=== PATIENT | male | born 1975 | race Caucasian/White ===

== ENCOUNTER 2018-01-02 10:59 | Inpatient (IN) | payer OTHER ==
[2018-01-02] VITALS (7 sets, daily range): BP systolic 136–182; BP diastolic 70–85; PULSE 99–105; RESP 16–20; TEMP 97.8–98.8; O2SAT 98–100
[2018-01-02 12:48] LABS: AUTOMATED NEUTROPHIL # 13.6 TH/MM3 (1.8-7.7); BASOPHIL # 0.1 TH/MM3 (0-0.2); BASOPHIL % 0.4 % (0.0-2.0); HEMATOCRIT 56.7 % (39.0-51.0); LYMPH % 8.2 % (9.0-44.0); LYMPHOCYTE # 1.3 TH/MM3 (1.0-4.8); MEAN CELL VOLUME 93.2 FL (80.0-100.0); MEAN CORPUSCULAR HEMOGLOBIN 29.6 PG (27.0-34.0); MEAN CORPUSCULAR HGB CONC 31.8 % (32.0-36.0); MEAN PLATELET VOLUME 9.5 FL (7.0-11.0); MONO % 3.3 % (0.0-8.0); MONOCYTE # 0.5 TH/MM3 (0-0.9); NEUT % 88.1 % (16.0-70.0); PLATELET COUNT 308 TH/MM3 (150-450); RED BLOOD COUNT 6.08 MIL/MM3 (4.50-5.90); RED CELL DISTRIBUTION WIDTH 14.5 % (11.6-17.2); WHITE BLOOD COUNT 15.4 TH/MM3 (4.0-11.0)
[2018-01-02 12:49] LABS: BILIRUBIN, URINE NEG (NEG); BLOOD, URINE SMALL (NEG); GLUCOSE,URINE 1000 mg/dL (NEG); KETONE, URINE 150 mg/dL (NEG); MUCUS URINE FEW /lpf (OCC); NITRITE,URINE NEG (NEG); PH, URINE 5.5 (5.0-8.5); URINE COLOR LIGHT-YELLOW (YELLW/STRAW); URINE LEUKOCYTE ESTERASE NEG (NEG)
[2018-01-02 12:51] LABS: INTERNATIONAL NORMALIZED RATIO 1.1 RATIO; PROTHROMBIN TIME - PATIENT 10.7 SEC (9.8-11.6)
[2018-01-02] MEDS ORDERED: ROSU1TAB8 PO (12:58)
[2018-01-02] MEDS ORDERED: METF500T PO (12:58)
[2018-01-02] MEDS: SODIUM CHLOR 0.9% 1000 ML INJ 1,000 ML IV SCH ×5 (13:01→21:35)
[2018-01-02 13:20] LABS: ALBUMIN 4.9 GM/DL (3.4-5.0); ALKALINE PHOSPHATASE 111 U/L (45-117); ALT (GPT) 86 U/L (12-78); AST (GOT) 29 U/L (15-37); BICARBONATE 6.8 MEQ/L (21.0-32.0); BLOOD UREA NITROGEN 30 MG/DL (7-18); CALCIUM 9.5 MG/DL (8.5-10.1); CHLORIDE 100 MEQ/L (98-107); CREATININE 1.86 MG/DL (0.60-1.30); GLOMERULAR FILTRATION RATE 40 ML/MIN (>89); SODIUM (NA) 133 MEQ/L (136-145); TOTAL BILIRUBIN ADULT 0.6 MG/DL (0.2-1.0); TOTAL PROTEIN 9.5 GM/DL (6.4-8.2)
[2018-01-02 13:33] LABS: GLUCOSE,RANDOM 647 MG/DL (74-106)
[2018-01-02] MEDS: DEXT 5%-NACL 0.9% 1000 ML INJ 1,000 ML IV SCH ×3 (13:35→21:08)
--- NOTE | 2018-01-02 13:40 | PD ---
Physical Exam Narrative I, Dr. Hillman, have reviewed the advance practice practitioner's documentation and am in agreement, met with the patient face to face, made the diagnosis, and the medical decision making was done by me. *My assessment and Findings: DKA vs. gastritis vs. viral syndrome 42yo M with HLD and recently diagnosed DM on metformin presents to the ED with c /o nausea and vomiting for 1.5 days. Pt has generalized weakness and has not been feeling well. Denies any fever, chest pain, sob, abdominal pain, focal weakness or numbness or diarrhea. Labs reviewed, leukocytosis at 15.4. H/H elevated at 18/56.7 likely dehydration. Glucose elevated at 647. Bicarb low at 6.8. BUN/creatinine elevated at 30/1.86. K is 5.0. Pt received 1 liter of NS IVF, ordered a second liter of NS IVF. Insulin drip ordered as well as replacement for potassium as needed. UA negative. Discussed with hospitalist Dr. Saleh and accepted to his service. Data Data Last Documented VS Vital Signs Date Time Temp Pulse Resp B/P (MAP) Pulse Ox O2 Delivery O2 Flow Rate FiO2 01/02/18 14:00 104 16 100 Room Air 01/02/18 11:42 97.8 Orders Orders Complete Blood Count With Diff (01/02/18 11:44) Comprehensive Metabolic Panel (01/02/18 11:44) Lipase (01/02/18 11:44) Prothrombin Time / Inr (Pt) (01/02/18 11:44) Act Partial Throm Time (Ptt) (01/02/18 11:44) Urinalysis - C+S If Indicated (01/02/18 11:44) Electrocardiogram (01/02/18 11:44) Beta Hydroxybutyrate (Acetone) (01/02/18 11:44) Sodium Chlor 0.9% 1000 Ml Inj (Ns 1000 M (01/02/18 12:50) Blood Gas Venous (Vbg) (01/02/18 12:50) Sodium Chlor 0.9% 1000 Ml Inj (Ns 1000 M (01/02/18 13:45) Sodium Chlor 0.9% 1000 Ml Inj (Ns 1000 M (01/02/18 13:35) Dext 5%-Nacl 0.9% 1000 Ml Inj (D5w-Ns 10 (01/02/18 13:35) Insulin Human Regular Inj (Novolin R Inj (01/02/18 13:45) Insulin Regular (Iv Infusion) (Novolin R (01/02/18 15:00) Potassium Chlor 20 Meq Premix (Kcl 20 Me (01/02/18 13:45) Potassium Chlor 20 Meq Premix (Kcl 20 Me (01/02/18 13:45) Potassium Chlor 20 Meq Premix (Kcl 20 Me (01/02/18 13:45) Potassium Chlor 20 Meq Premix (Kcl 20 Me (01/02/18 13:45) Admit To Inpatient (01/02/18 ) Staff Developer / Telemetry AURELIA.Q8H (01/02/18 14:11) ^ Insert Iv (01/02/18 14:11) ^ Teach Patient (01/02/18 14:11) Bedside Glucose AURELIA.Q1H (01/02/18 14:11) Potassium Chlor 40 Meq Premix (Kcl 40 Me (01/02/18 14:15) Potassium Chlor 40 Meq Premix (Kcl 40 Me (01/02/18 14:15) Potassium Chlor 20 Meq Premix (Kcl 20 Me (01/02/18 14:15) Potassium Chlor 20 Meq Premix (Kcl 20 Me (01/02/18 14:15) Potassium Chlor 20 Meq Premix (Kcl 20 Me (01/02/18 14:15) Potassium Chlor 20 Meq Premix (Kcl 20 Me (01/02/18 14:15) Potassium Chlor 20 Meq Premix (Kcl 20 Me (01/02/18 14:15) Potassium Chlor 20 Meq Premix (Kcl 20 Me (01/02/18 14:15) Sodium Bicarbonate 8.4% Inj (Sodium Bica (01/02/18 14:15) Sodium Bicarbonate 8.4% Inj (Sodium Bica (01/02/18 14:15) Sodium Phosphate Inj (Sodium Phosphate I (01/02/18 14:15) Basic Metabolic Panel (Bmp) (01/02/18 19:11) Basic Metabolic Panel (Bmp) (01/03/18 01:11) Basic Metabolic Panel (Bmp) (01/03/18 07:11) Magnesium (Mg) (01/02/18 19:11) Magnesium (Mg) (01/03/18 01:11) Magnesium (Mg) (01/03/18 07:11) Phosphorus (Po4) (01/02/18 19:11) Phosphorus (Po4) (01/03/18 01:11) Phosphorus (Po4) (01/03/18 07:11) Beta Hydroxybutyrate (Acetone) (01/03/18 01:11) Beta Hydroxybutyrate (Acetone) (01/03/18 13:11) ^ Initiate Protocol (01/02/18 14:11) Instruction (01/02/18 14:11) [facility] (01/02/18 14:15) Chlorhexidine 2% Cloth (Chlorhexidine 2% (01/03/18 04:00) Chlorhexidine 2% Cloth (Chlorhexidine 2% (01/02/18 14:15) Mrsa Pcr Surveillance (01/02/18 14:11) Inpatient Certification (01/02/18 ) Activity Oob With Assistance (01/02/18 14:11) Acetaminophen (Tylenol) (01/02/18 14:15) Ondansetron Inj (Zofran Inj) (01/02/18 14:15) Case Management Consult (01/02/18 14:11) Scd Bilateral/Knee High AURELIA.BID (01/02/18 14:11) Acetaminophen (Tylenol) (01/02/18 14:15) Naloxone Inj (Narcan Inj) (01/02/18 14:15) Magnesium Hydroxide Liq (Milk Of Magnesi (01/02/18 14:15) Albuterol-Ipratropium Neb (Duoneb Neb) (01/02/18 14:15) Hemoglobin (Hgb) A1c (01/03/18 06:00) Admit Order (Ed Use Only) (01/02/18 14:17) Labs Laboratory Tests Test 01/02/18 12:30 01/02/18 12:31 01/02/18 13:15 White Blood Count 15.4 TH/MM3 Red Blood Count 6.08 MIL/MM3 Hemoglobin 18.0 GM/DL Hematocrit 56.7 % Mean Corpuscular Volume 93.2 FL Mean Corpuscular Hemoglobin 29.6 PG Mean Corpuscular Hemoglobin Concent 31.8 % Red Cell Distribution Width 14.5 % Platelet Count 308 TH/MM3 Mean Platelet Volume 9.5 FL Neutrophils (%) (Auto) 88.1 % Lymphocytes (%) (Auto) 8.2 % Monocytes (%) (Auto) 3.3 % Eosinophils (%) (Auto) 0.0 % Basophils (%) (Auto) 0.4 % Neutrophils # (Auto) 13.6 TH/MM3 Lymphocytes # (Auto) 1.3 TH/MM3 Monocytes # (Auto) 0.5 TH/MM3 Eosinophils # (Auto) 0.0 TH/MM3 Basophils # (Auto) 0.1 TH/MM3 CBC Comment DIFF FINAL Differential Comment Prothrombin Time 10.7 SEC Prothromb Time International Ratio 1.1 RATIO Activated Partial Thromboplast Time 25.0 SEC Blood Urea Nitrogen 30 MG/DL Creatinine 1.86 MG/DL Random Glucose 647 MG/DL Total Protein 9.5 GM/DL Albumin 4.9 GM/DL Calcium Level 9.5 MG/DL Alkaline Phosphatase 111 U/L Aspartate Amino Transf (AST/SGOT) 29 U/L Alanine Aminotransferase (ALT/SGPT) 86 U/L Total Bilirubin 0.6 MG/DL Sodium Level 133 MEQ/L Potassium Level 5.0 MEQ/L Chloride Level 100 MEQ/L Carbon Dioxide Level 6.8 MEQ/L Anion Gap 26 MEQ/L Estimat Glomerular Filtration Rate 40 ML/MIN Lipase 180 U/L B-Hydroxybutyrate 9.76 MMOL/L Urine Color LIGHT-YELLOW Urine Turbidity CLEAR Urine pH 5.5 Urine Specific [place] 1.029 Urine Protein 100 mg/dL Urine Glucose (UA) 1000 mg/dL Urine Ketones 150 mg/dL Urine Occult Blood SMALL Urine Nitrite NEG Urine Bilirubin NEG Urine Urobilinogen LESS THAN 2.0 MG/DL Urine Leukocyte Esterase NEG Urine RBC 1 /hpf Urine WBC LESS THAN 1 /hpf Urine Mucus FEW /lpf Microscopic Urinalysis Comment CULT NOT INDICATED Blood Gas Puncture Site LINE Blood Gas Patient Temperature 98.6 Venous Blood pH 7.11 Venous Blood Partial Pressure CO2 25 mmHg Venous Blood Partial Pressure O2 41 mmHg Venous Blood HCO3 8 mmol/L Venous Blood Oxygen Saturation 67 % Venous Blood Oxygen Content 15.5 Vol % Venous Blood Base Excess -20.1 mmol/L Oxygen Delivery Device ROOM AIR Blood Gas Liter Flow 21 L/M [facility] Supervised Visit with [facility]: Yes Interpretation(s) EKG: NSR 98bpm. Normal axis. No ST segment elevation or depression. Critical Care Narrative Aggregate critical care time was 35 minutes. Time to perform other separately billable procedures was not included in the critical care time. My time did not include minutes spent treating any other patients simultaneously or on activities that did not directly contribute to the patient's treatment. The service I provided to this patient were to treat and/or prevent clinically significant deterioration that could result in: cardiovascular collapse or . I provided critical care services requiring my management, as noted below: Chart data review, documentation time, medication orders and management, vital sign assessments/reviewing monitor data, ordering and reviewing lab tests, ordering and interpreting/reviewing x- rays and diagnostic studies, care of the patient and discussion of the patient with the admitting physicians. Diagnosis Primary Impression: DKA (diabetic ketoacidoses) Qualified Codes: E13.10 - Other specified diabetes mellitus with ketoacidosis without coma Admitting Information Admitting Physician Requests: Admit Scripts Lisinopril (Lisinopril) 5 Mg Tab 5 MG PO DAILY for Blood Pressure Management, #30 TAB 0 Refills Prov: Oriana Adams MD 01/04/18 Parenteral Therapy Supplies (Sharpsafety Sharps Contai) 1 Mis Mis EA .XX DIRECTED, #1 0 Refills Prov: Oriana Adams MD 01/04/18 Glucocom Test Strips (Glucocom Test Strips) 1 Marce Marce EA .XX DIRECTED for Blood Sugar Management, #1 Prov: Oriana Adams MD 01/04/18 Lancets (Lancets) 1 Mis Mis EA .XX DIRECTED for Blood Sugar Management, #1 0 Refills Prov: Oriana Adams MD 01/04/18 Insulin Syringe/U-100/31G X 5/16" 1 ml (Insulin Syringe/U-100/31G X 5/16" 1 ml) 31 Gauge X 5/16" Mis EA .XX DIRECTED for Blood Sugar Management, #1 0 Refills Prov: Oriana Adams MD 01/04/18 Blood Glucose Monitoring W/Device (Glucocom Blood Glucose Mo W/Device) 1 Kit Kit KIT .XX DIRECTED for Blood Sugar Management, #1 Prov: Oriana Adams MD 01/04/18 Insulin Detemir Inj (Levemir Inj) 1,000 unit/ 10 ML Vial 15 UNITS SQ Q12HR for Blood Sugar Management, #60 INJECTION Do not mix with any other Insulin. Prov: Oriana Adams MD 01/04/18 Alla Hillman DO Jan 02, 2018 13:40
[2018-01-02] MEDS ORDERED: SODIUM CHLOR 0.9% 1000 ML INJ 1,000 ML IV ONE (13:45)
[2018-01-02] MEDS ORDERED: INSULIN HUMAN REGULAR 1,000 UNITS/10 ML VIAL IV PUSH ONE (13:45)
[2018-01-02] MEDS ORDERED: POTASSIUM CHLOR 20 MEQ PREMIX 100 ML IV PRN ×9 (13:45→14:15)
[2018-01-02] MEDS ORDERED: SODIUM BICARBONATE 8.4% SOLN 50 MEQ/50 ML VIAL IV PUSH PRN ×2 (14:15)
[2018-01-02] MEDS ORDERED: MISCELLANEOUS NURSING INFORMATION XX SCH (14:15)
[2018-01-02] MEDS ORDERED: ACETAMINOPHEN 325 MG TAB PO PRN ×2 (14:15)
[2018-01-02] MEDS ORDERED: RESP: ALBUTEROL 2.5 MG/IPRATROPIUM 0.5 MG NEB (PRN) NEB (14:15)
[2018-01-02] MEDS ORDERED: NALOXONE HCL 0.4 MG/ML AMP IV PUSH PRN (14:15)
[2018-01-02] MEDS ORDERED: SODIUM PHOSPHATE INJ 15 MMOL in SODIUM CHLORIDE 0.9% INJ 100 ML IV PRN (14:15)
[2018-01-02] MEDS ORDERED: CHLORHEXIDINE GLUCONATE 2 % 1 PACK (2 CLOTHS) TOP PRN (14:15)
[2018-01-02] MEDS ORDERED: POTASSIUM CHLOR 40 MEQ PREMIX 100 ML IV PRN ×2 (14:15)
[2018-01-02] MEDS ORDERED: MAGNESIUM HYDROXIDE SUSP 30 ML CUP PO PRN (14:15)
--- NOTE | 2018-01-02 14:38 | HHI.HP ---
HPI [facility] Primary Care Physician Unknown Admission Diagnosis DKA Diagnoses: (1) DKA (diabetic ketoacidoses) Chief Complaint: nausea and vomiting Travel History International Travel<30 Days: No Contact w/Intl Traveler <30 Da: No Traveled to Known Affected Are: No History of Present Illness 42-year-old male newly diagnosed diabetes type 2 presented to the ED for evaluation of 2 day history of intractable nausea and vomiting associated with low energy and decreased appetite. While in the ED, patient was found to have glucose of 600+ and a positive beta hydroxybutyrate. Patient states over the past week, he hasn't been feeling well with increasing lethargy, worsening cold sensation and a decreased appetite. He is currently on metformin 500 daily. States, prior to his diagnosis he did not have any health problem. During my exam, patient has no complaint of chest pain or shortness of breath and denies any febrile episode. Review of Systems Except as stated in HPI: all other systems reviewed are Neg Past Family Social History Past Medical History Diabetes type 2, hyperlipidemia Past Surgical History Vasectomy Reported Medications Metformin 500 mg daily Crestor Allergies: Coded Allergies: No Known Allergies (Unverified , 01/02/18) Family History Positive for diabetes Social History Patient denies tobacco, alcohol or illicit drug intake Physical Exam Vital Signs Vital Signs Date Time Temp Pulse Resp B/P (MAP) Pulse Ox O2 Delivery O2 Flow Rate FiO2 01/02/18 12:55 101 18 140/85 (103) 99 01/02/18 11:42 97.8 105 20 182/82 (115) 98 Physical Exam GENERAL: This is a well-nourished, well-developed patient, in no apparent distress. SKIN: No rashes, ecchymoses or lesions. Cool and dry. HEAD: Atraumatic. Normocephalic. No temporal or scalp tenderness. EYES: Pupils equal round and reactive. Extraocular motions intact. No scleral icterus. No injection or drainage. ENT: Nose without bleeding, purulent drainage or septal hematoma. Throat without erythema, tonsillar hypertrophy or exudate. Uvula midline. Airway patent. NECK: Trachea midline. No JVD or lymphadenopathy. Supple, nontender, no meningeal signs. CARDIOVASCULAR: Regular rate and rhythm without murmurs, gallops, or rubs. RESPIRATORY: Clear to auscultation. Breath sounds equal bilaterally. No wheezes , rales, or rhonchi. GASTROINTESTINAL: Abdomen soft, non-tender, nondistended. No hepato-splenomegaly , or palpable masses. No guarding. MUSCULOSKELETAL: Extremities without clubbing, cyanosis, or edema. No joint tenderness, effusion, or edema noted. No calf tenderness. Negative Homans sign bilaterally. NEUROLOGICAL: Awake and alert. Cranial nerves II through XII intact. Motor and sensory grossly within normal limits. Five out of 5 muscle strength in all muscle groups. Normal speech. Laboratory Laboratory Tests Test 01/02/18 12:30 01/02/18 12:31 01/02/18 13:15 White Blood Count 15.4 Red Blood Count 6.08 Hemoglobin 18.0 Hematocrit 56.7 Mean Corpuscular Volume 93.2 Mean Corpuscular Hemoglobin 29.6 Mean Corpuscular Hemoglobin Concent 31.8 Red Cell Distribution Width 14.5 Platelet Count 308 Mean Platelet Volume 9.5 Neutrophils (%) (Auto) 88.1 Lymphocytes (%) (Auto) 8.2 Monocytes (%) (Auto) 3.3 Eosinophils (%) (Auto) 0.0 Basophils (%) (Auto) 0.4 Neutrophils # (Auto) 13.6 Lymphocytes # (Auto) 1.3 Monocytes # (Auto) 0.5 Eosinophils # (Auto) 0.0 Basophils # (Auto) 0.1 CBC Comment DIFF FINAL Differential Comment Prothrombin Time 10.7 Prothromb Time International Ratio 1.1 Activated Partial Thromboplast Time 25.0 Blood Urea Nitrogen 30 Creatinine 1.86 Random Glucose 647 Total Protein 9.5 Albumin 4.9 Calcium Level 9.5 Alkaline Phosphatase 111 Aspartate Amino Transf (AST/SGOT) 29 Alanine Aminotransferase (ALT/SGPT) 86 Total Bilirubin 0.6 Sodium Level 133 Potassium Level 5.0 Chloride Level 100 Carbon Dioxide Level 6.8 Anion Gap 26 Estimat Glomerular Filtration Rate 40 Lipase 180 B-Hydroxybutyrate 9.76 Urine Color LIGHT-YELLOW Urine Turbidity CLEAR Urine pH 5.5 Urine Specific [place] 1.029 Urine Protein 100 Urine Glucose (UA) 1000 Urine Ketones 150 Urine Occult Blood SMALL Urine Nitrite NEG Urine Bilirubin NEG Urine Urobilinogen LESS THAN 2.0 Urine Leukocyte Esterase NEG Urine RBC 1 Urine WBC LESS THAN 1 Urine Mucus FEW Microscopic Urinalysis Comment CULT NOT INDICATED Blood Gas Puncture Site LINE Blood Gas Patient Temperature 98.6 Venous Blood pH 7.11 Venous Blood Partial Pressure CO2 25 Venous Blood Partial Pressure O2 41 Venous Blood HCO3 8 Venous Blood Oxygen Saturation 67 Venous Blood Oxygen Content 15.5 Venous Blood Base Excess -20.1 Oxygen Delivery Device ROOM AIR Blood Gas Liter Flow 21 Result Diagram: 01/02/18 1230 01/02/18 1230 Septic Shock Reassessment Septic shock perfusion: reassessment completed Caprini VTE Risk Assessment Caprini VTE Risk Assessment: No/Low Risk (score <= 1) Caprini Risk Assessment Model Point Value = 1 Point Value = 2 Point Value = 3 Point Value = 5 Age 41-60 Minor surgery BMI > 25 kg/m2 Swollen legs Varicose veins or History of unexplained or recurrent spontaneous Oral contraceptives or hormone replacement Sepsis (< 1 month) Serious lung disease, including pneumonia (< 1 month) Abnormal pulmonary function Acute myocardial infarction Congestive heart failure (< 1 month) History of inflammatory bowel disease Medical patient at bed rest Age 61-74 Arthroscopic surgery Major open surgery (> 45 min) Laparoscopic surgery (> 45 min) Malignancy Confined to bed (> 72 hours) Immobilizing plaster cast Central venous access Age >= 75 History of VTE Family history of VTE Factor V Leiden Prothrombin 26126P Lupus anticoagulant Anticardiolipin antibodies Elevated serum homocysteine Heparin-induced thrombocytopenia Other congenital or acquired thrombophilia Stroke (< 1 month) Elective arthroplasty Hip, pelvis, or leg fracture Acute spinal cord injury (< 1 month) Prophylaxis Regimen Total Risk Factor Score Risk Level Prophylaxis Regimen 0-1 Low Early ambulation 2 Moderate Order ONE of the following: *Sequential Compression Device (SCD) *Heparin 5000 units SQ BID 3-4 Higher Order ONE of the following medications: *Heparin 5000 units SQ TID *Enoxaparin/Lovenox 40 mg SQ daily (WT < 150 kg, CrCl > 30 mL/min) *Enoxaparin/Lovenox 30 mg SQ daily (WT < 150 kg, CrCl > 10-29 mL/min) *Enoxaparin/Lovenox 30 mg SQ BID (WT < 150 kg, CrCl > 30 mL/min) AND/OR *Sequential Compression Device (SCD) 5 or more Highest Order ONE of the following medications: *Heparin 5000 units SQ TID (Preferred with Epidurals) *Enoxaparin/Lovenox 40 mg SQ daily (WT < 150 kg, CrCl > 30 mL/min) *Enoxaparin/Lovenox 30 mg SQ daily (WT < 150 kg, CrCl > 10-29 mL/min) *Enoxaparin/Lovenox 30 mg SQ BID (WT < 150 kg, CrCl > 30 mL/min) AND *Sequential Compression Device (SCD) Assessment and Plan Problem List: (1) DKA (diabetic ketoacidoses) ICD Code: E13.10 - Other specified diabetes mellitus with ketoacidosis without coma (2) ARF (acute renal failure) ICD Code: N17.9 - Acute kidney failure, unspecified Assessment and Plan 42-year-old man with Diabetic ketoacidosis Start insulin drip per protocol Aggressive IV fluid resuscitation, however start D5 NS at 200ml/hr when BG drops below 250 . Serial Electrolytes and beta-hydroxybutyrate monitoring ICU admission Keep nothing by mouth as patient with current anion gap of 26.2, start feeding when its closes Hold off antibiotics at this time since there is no sign of infection Acute renal failure Patient's baseline not known IV fluid hydration A void all nephrotoxic drugs and monitor BUN and creatinine DVT prophylaxis: Bilateral SCDs GI prophylaxis: Pepcid Total critical care time spent in the care of the patient 50 minutes Level III Code Status Full code Discussed Condition With Patient, , ED physician Physician Certification 2 Midnight Certification Type: Admission for Inpatient Services Order for Inpatient Services The services are ordered in accordance with Medicare regulations or non- Medicare payer requirements, as applicable. In the case of services not specified as inpatient-only, they are appropriately provided as inpatient services in accordance with the 2-midnight benchmark. Estimated LOS (days): 2 days is the estimated time the patient will need to remain in the hospital, assuming treatment plan goals are met and no additional complications. Post-Hospital Plan: Not yet determined Felipe Saleh MD Jan 02, 2018 14:38
[2018-01-02] MEDS: INSULIN REGULAR (IV INFUSION) 100 UNITS in SODIUM CHLORIDE 0.9% INJ 99 ML IV PRN (17:00)
[2018-01-02] MEDS: ONDANSETRON HCL 4 MG/2 ML VIAL IVP PRN (18:07)
[2018-01-02] MEDS: FAMOTIDINE 20 MG/2 ML VIAL IV PUSH SCH ×2 (20:57→21:00)
[2018-01-02 21:05] LABS: BICARBONATE 11.8 MEQ/L (21.0-32.0); CREATININE 1.46 MG/DL (0.60-1.30); MAGNESIUM 2.4 MG/DL (1.5-2.5); PHOSPHORUS 0.8 MG/DL (2.5-4.9)
[2018-01-02] MEDS: POTASSIUM CHLOR 20 MEQ PREMIX 100 ML IV PRN (21:48)
[2018-01-03] VITALS (12 sets, daily range): BP systolic 121–160; BP diastolic 60–82; PULSE 70–92; RESP 14–20; TEMP 97.5–98.4; O2SAT 96–100
[2018-01-03] MEDS: INSULIN REGULAR (IV INFUSION) 100 UNITS in SODIUM CHLORIDE 0.9% INJ 99 ML IV PRN (00:21)
[2018-01-03] MEDS: SODIUM CHLOR 0.9% 1000 ML INJ 1,000 ML IV SCH (01:35)
[2018-01-03] MEDS: DEXT 5%-NACL 0.9% 1000 ML INJ 1,000 ML IV SCH (02:29)
[2018-01-03] MEDS: CHLORHEXIDINE GLUCONATE 2 % 1 PACK (2 CLOTHS) TOP SCH ×2 (02:29→06:00)
[2018-01-03 02:48] LABS: BICARBONATE 15.5 MEQ/L (21.0-32.0); CALCIUM 8.5 MG/DL (8.5-10.1); CREATININE 1.32 MG/DL (0.60-1.30); MAGNESIUM 2.3 MG/DL (1.5-2.5); PHOSPHORUS 0.6 MG/DL (2.5-4.9)
[2018-01-03] MEDS ORDERED: DEXTROSE 50% IN WATER 50 ML VIAL(D50) IV PUSH PRN (07:30)
[2018-01-03] MEDS ORDERED: GLUCAGON 1 MG/ML VIAL OTHER PRN (07:30)
[2018-01-03] MEDS: INSULIN ASPART SUPPLEMENTAL SCALE SQ SCH ×4 (08:00→20:34)
[2018-01-03] MEDS ORDERED: INSULIN DETEMIR 100 UNITS/ML VIAL SQ SCH ×2 (09:00→21:00)
--- NOTE | 2018-01-03 09:42 | HHI.PR ---
Subjective Remarks Follow-up DKA 01/03/18-patient seen and examined,anion gap closed and no acute event overnight. Denies any nausea of vomiting with by mouth intake. Objective Vitals Vital Signs Date Time Temp Pulse Resp B/P (MAP) Pulse Ox O2 Delivery O2 Flow Rate FiO2 01/03/18 04:00 98.3 77 14 137/71 (93) 99 01/03/18 00:00 98.4 92 15 121/60 (80) 99 01/02/18 20:00 98.8 99 19 136/75 (95) 100 01/02/18 18:58 01/02/18 17:55 105 18 148/70 (96) 99 01/02/18 17:00 102 18 100 01/02/18 15:00 102 16 100 Room Air 01/02/18 14:00 104 16 100 Room Air 01/02/18 12:55 101 18 140/85 (103) 99 01/02/18 11:42 97.8 105 20 182/82 (115) 98 I/O 01/02/18 01/02/18 01/02/18 01/03/18 01/03/18 01/03/18 07:00 15:00 23:00 07:00 15:00 23:00 Intake Total 1000 ml 3000 ml 1554 ml 630 ml Output Total 550 ml 500 ml 1200 ml Balance 450 ml 2500 ml 354 ml 630 ml Intake IV Total 1000 ml 3000 ml 1554 ml 630 ml Output Urine Total 550 ml 500 ml 1200 ml # Voids 1 # Bowel Movements 0 Result Diagram: 01/02/18 1230 01/03/18 0219 Objective Remarks GENERAL: NAD SKIN: Warm and dry. HEAD: Normocephalic. EYES: No scleral icterus. No injection or drainage. NECK: Supple, trachea midline. No JVD or lymphadenopathy. CARDIOVASCULAR: Regular rate and rhythm without murmurs, gallops, or rubs. RESPIRATORY: Breath sounds equal bilaterally. No accessory muscle use. GASTROINTESTINAL: Abdomen soft, non-tender, nondistended. MUSCULOSKELETAL: No cyanosis, or edema. BACK: Nontender without obvious deformity. No CVA tenderness. 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
[2018-01-03 11:38] LABS: BICARBONATE 17.7 MEQ/L (21.0-32.0); CREATININE 1.26 MG/DL (0.60-1.30); MAGNESIUM 2.1 MG/DL (1.5-2.5); PHOSPHORUS 1.2 MG/DL (2.5-4.9)
[2018-01-03] MEDS: ONDANSETRON HCL 4 MG/2 ML VIAL IVP PRN (15:59)
[2018-01-03 16:50] LABS: HEMOGLOBIN A1C 11.5 % (4.3-6.0)
[2018-01-03] MEDS: INSULIN ASPART 1,000 UNITS/10 ML VIAL SQ SCH (17:12)
[2018-01-03] MEDS ORDERED: INSULIN DETEMIR 100 UNITS/ML VIAL SQ ONE (21:45)
[2018-01-04] VITALS: BP 147/81; PULSE 72; RESP 20; TEMP 98.1; O2SAT 100
[2018-01-04 00:01] VITALS: PULSE 73
[2018-01-04] MEDS: ONDANSETRON HCL 4 MG/2 ML VIAL IVP PRN (00:10)
[2018-01-04 03:53] VITALS: PULSE 65
[2018-01-04 04:00] VITALS: BP 142/78; PULSE 63; RESP 20; TEMP 98.1; O2SAT 97
--- NOTE | 2018-01-04 07:39 | EKG ---
Date Performed: 01/02/2018 Time Performed: 12:27:03 PTAGE: 42 years EKG: Sinus rhythm WITH SHORT AR INTERVAL INCOMPLETE RIGHT BUNDLE BRANCH BLOCK RIGHT AXIS DEVIATION BORDERLINE ECG NO PREVIOUS TRACING DOCTOR: Dano Watt Interpretating Date/Time 01/04/2018 07:37:31
[2018-01-04 08:00] VITALS: BP 151/89; PULSE 71; PULSE 75; RESP 20; TEMP 98.1; O2SAT 99
[2018-01-04] MEDS: INSULIN ASPART SUPPLEMENTAL SCALE SQ SCH ×2 (08:00→12:00)
[2018-01-04] MEDS: INSULIN ASPART 1,000 UNITS/10 ML VIAL SQ SCH ×2 (08:00→12:00)
[2018-01-04] MEDS ORDERED: INSULIN DETEMIR 100 UNITS/ML VIAL SQ SCH (09:00)
[2018-01-04 09:38] LABS: BICARBONATE 18.9 MEQ/L (21.0-32.0); CALCIUM 8.5 MG/DL (8.5-10.1); CREATININE 1.13 MG/DL (0.60-1.30)
[2018-01-04] MEDS ORDERED: LEVEMIR SQ (10:59)
--- NOTE | 2018-01-04 10:59 | HHI.DS ---
Discharge Summary Admission Date Jan 02, 2018 at 14:19 Discharge Date: Jan 04, 2018 Admitting Diagnosis DKA (1) DKA (diabetic ketoacidoses) ICD Code: E13.10 - Other specified diabetes mellitus with ketoacidosis without coma Status: Resolved (2) ARF (acute renal failure) ICD Code: N17.9 - Acute kidney failure, unspecified Procedures No procedures Brief History - From Admission 42-year-old male newly diagnosed diabetes type 2 presented to the ED for evaluation of 2 day history of intractable nausea and vomiting associated with low energy and decreased appetite. While in the ED, patient was found to have glucose of 600+ and a positive beta hydroxybutyrate. Patient states over the past week, he hasn't been feeling well with increasing lethargy, worsening cold sensation and a decreased appetite. He is currently on metformin 500 daily. States, prior to his diagnosis he did not have any health problem. During my exam, patient has no complaint of chest pain or shortness of breath and denies any febrile episode. CBC/BMP: 01/02/18 1230 01/04/18 0700 Significant Findings Laboratory Tests Test 01/02/18 12:30 01/02/18 12:31 01/02/18 13:15 01/02/18 19:08 White Blood Count 15.4 TH/MM3 (4.0-11.0) Red Blood Count 6.08 MIL/MM3 (4.50-5.90) Hemoglobin 18.0 GM/DL (13.0-17.0) Hematocrit 56.7 % (39.0-51.0) Mean Corpuscular Hemoglobin Concent 31.8 % (32.0-36.0) Neutrophils (%) (Auto) 88.1 % (16.0-70.0) Lymphocytes (%) (Auto) 8.2 % (9.0-44.0) Neutrophils # (Auto) 13.6 TH/MM3 (1.8-7.7) Blood Urea Nitrogen 30 MG/DL (7-18) Creatinine 1.86 MG/DL (0.60-1.30) Random Glucose 647 MG/DL (74-106) Total Protein 9.5 GM/DL (6.4-8.2) Alanine Aminotransferase (ALT/SGPT) 86 U/L (12-78) Sodium Level 133 MEQ/L (136-145) Carbon Dioxide Level 6.8 MEQ/L (21.0-32.0) Anion Gap 26 MEQ/L (5-15) Estimat Glomerular Filtration Rate 40 ML/MIN (>89) B-Hydroxybutyrate 9.76 MMOL/L (0.00-0.39) Urine Protein 100 mg/dL (NEG-TRACE) Urine Glucose (UA) 1000 mg/dL (NEG) Urine Ketones 150 mg/dL (NEG) Urine Occult Blood SMALL (NEG) Urine Mucus FEW /lpf (OCC) Venous Blood pH 7.11 (7.360-7.400) Venous Blood Partial Pressure CO2 25 mmHg (44-48) Venous Blood Partial Pressure O2 41 mmHg (35-40) Venous Blood HCO3 8 mmol/L (22-26) Venous Blood Oxygen Saturation 67 % (70-76) Venous Blood Base Excess -20.1 mmol/L (-2-2) Test 01/02/18 20:20 18 02:19 01/03/18 10:33 01/03/18 15:14 Blood Urea Nitrogen 25 MG/DL (7-18) 20 MG/DL (7-18) 19 MG/DL (7-18) Creatinine 1.46 MG/DL (0.60-1.30) 1.32 MG/DL (0.60-1.30) Random Glucose 252 MG/DL (74-106) 167 MG/DL (74-106) 329 MG/DL (74-106) Calcium Level 8.0 MG/DL (8.5-10.1) 8.0 MG/DL (8.5-10.1) Phosphorus Level 0.8 MG/DL (2.5-4.9) 0.6 MG/DL (2.5-4.9) 1.2 MG/DL (2.5-4.9) Sodium Level 148 MEQ/L (136-145) 148 MEQ/L (136-145) Chloride Level 119 MEQ/L (98-107) 124 MEQ/L (98-107) 116 MEQ/L (98-107) Carbon Dioxide Level 11.8 MEQ/L (21.0-32.0) 15.5 MEQ/L (21.0-32.0) 17.7 MEQ/L (21.0-32.0) Anion Gap 17 MEQ/L (5-15) Estimat Glomerular Filtration Rate 52 ML/MIN (>89) 59 ML/MIN (>89) 62 ML/MIN (>89) B-Hydroxybutyrate 1.59 MMOL/L (0.00-0.39) 3.66 MMOL/L (0.00-0.39) Hemoglobin A1c 11.5 % (4.3-6.0) Test 01/04/18 07:00 Blood Urea Nitrogen 20 MG/DL (7-18) Random Glucose 258 MG/DL (74-106) Sodium Level 146 MEQ/L (136-145) Chloride Level 113 MEQ/L (98-107) Carbon Dioxide Level 18.9 MEQ/L (21.0-32.0) Estimat Glomerular Filtration Rate 70 ML/MIN (>89) PE at Discharge GENERAL: NAD SKIN: Warm and dry. HEAD: Normocephalic. EYES: No scleral icterus. No injection or drainage. NECK: Supple, trachea midline. No JVD or lymphadenopathy. CARDIOVASCULAR: Regular rate and rhythm without murmurs, gallops, or rubs. RESPIRATORY: Breath sounds equal bilaterally. No accessory muscle use. GASTROINTESTINAL: Abdomen soft, non-tender, nondistended. MUSCULOSKELETAL: No cyanosis, or edema. BACK: Nontender without obvious deformity. No CVA tenderness. 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 Blood sugar is better controlled. Add diabetic educate patient. Patient is able to self inject insulin and feels comfortable. Discharged home in stable condition to follow- up with PCP and consultants as outpatient. Pt Condition on Discharge: Stable Discharge Disposition: Discharge Home Discharge Time: > 30 minutes Discharge Instructions DIET: Follow Instructions for: Heart Healthy Diet, Diabetic Diet Activities you can perform: Regular-No Restrictions Follow up Referrals: PCP Follow-up - 2-3 Days PCP Follow-up with [facility] New Medications: Blood Glucose Monitoring W/Device (Glucocom Blood Glucose Mo W/Device) 1 Kit Kit KIT .XX DIRECTED for Blood Sugar Management, #1 Glucocom Test Strips (Glucocom Test Strips) 1 Marce Marce EA .XX DIRECTED for Blood Sugar Management, #1 Insulin Syringe/U-100/31G X 5/16" 1 ml (Insulin Syringe/U-100/31G X 5/16" 1 ml) 31 Gauge X 5/16" Mis EA .XX DIRECTED for Blood Sugar Management, #1 0 Refills Lancets (Lancets) 1 Mis Mis EA .XX DIRECTED for Blood Sugar Management, #1 0 Refills Lisinopril (Lisinopril) 5 Mg Tab 5 MG PO DAILY for Blood Pressure Management, #30 TAB 0 Refills Parenteral Therapy Supplies (Sharpsafety Sharps Contai) 1 Mis Mis EA .XX DIRECTED, #1 0 Refills Insulin Detemir Inj (Levemir Inj) 1,000 unit/ 10 ML Vial 15 UNITS SQ Q12HR for Blood Sugar Management, #60 INJECTION Do not mix with any other Insulin. Continued Medications: Rosuvastatin (Rosuvastatin) 20 Mg Tab 20 MG PO DAILY for Cholesterol Management, #30 TAB 0 Refills Discontinued Medications: Metformin (Metformin) 500 Mg Tab 500 MG PO DAILY for Blood Sugar Management, #30 TAB 0 Refills With a meal Oriana Adams MD Jan 04, 2018 10:59
[2018-01-04] MEDS ORDERED: GLUCKIT15 (11:01)
[2018-01-04] MEDS ORDERED: INSU1MIS15 (11:01)
[2018-01-04] MEDS ORDERED: LANCETS1 MI1 (11:01)
[2018-01-04] MEDS ORDERED: GLUCTES12 (11:01)
[2018-01-04] MEDS ORDERED: BIOM30MI (11:01)
[2018-01-04] MEDS ORDERED: LISI-519 PO (11:03)
[2018-01-04] MEDS ORDERED: LISINOPRIL 5 MG TAB PO ONE (11:45)
[2018-01-04 12:00] VITALS: BP 134/81; PULSE 69; RESP 18; TEMP 99; O2SAT 98
[2018-01-05] MEDS ORDERED: LISINOPRIL 5 MG TAB PO SCH (09:00)
== END 2018-01-04 15:01 | disposition home or self-care (01) | DRG 638 ==
LOC: NEPC 10:59 → NEDA 14:19 → HIME 18:55 → N04B 01-03 16:11
PROVIDERS: ADMIT Hospitalist; ATTEND Hospitalist
DX: E11.10 Type 2 diabetes mellitus with ketoacidosis without coma (principal); Z79.84 Long term (current) use of oral hypoglycemic drugs; N17.9 Acute kidney failure, unspecified; E78.5 Hyperlipidemia, unspecified
CPT/HCPCS: 80048; 80053; 81001; 82010; 82805; 82948; 83036; 83690; 83735; 84100; 85025; 85610; 85730; 87641; 93005; 96361; 96374; J1815; J1817; J2405; J3480; J7030; J7042